=== PATIENT | female | born 1955 | race Caucasian/White ===

== ENCOUNTER 2018-12-21 12:53 | Emergency (ER) | payer OTHER ==
[~2018-12-21] VITALS: Ht 165.1 cm; Wt 68.0 kg
[~2018-12-21 12:53] MED LIST: ADVIL200 M1 PO; CLIMARA 0.070.075 MG TD; LEVOTHYROXIN0.137 M1 PO; XANAX 0.5 MG0.5 MG PO
[2018-12-21] MEDS ORDERED: [UNRECOGNIZED DRUG - OTHER] TP (13:08)
[2018-12-21 14:31] LABS: HEMATOCRIT 40.9 % (37.0-47.0); HEMOGLOBIN 14.3 gm/dL (12.0-15.0); MCH 32.8 pg (26.0-34.0); MCHC 34.9 g/dL (28.0-37.0); PLATELET COUNT 245 thou/uL (150-400); RBC 4.36 mil/uL (4.20-5.00); RDW 12.5 % (10.5-14.5); WBC 5.6 thou/uL (4.0-11.0)
[2018-12-21 14:38] LABS: CALCIUM 9.7 mg/dL (8.5-10.1); CREATININE 0.8 mg/dL (0.6-1.0); POTASSIUM 4.3 mmol/L (3.5-5.1)
[2018-12-21 14:44] LABS: TOTAL BILIRUBIN 0.3 mg/dL (<0.1-1.0); TOTAL PROTEIN 7.6 g/dL (6.4-8.2)
[2018-12-21 14:55] LABS: ABSOLUTE NEUTROPHILS 3.2 thou/uL (1.4-8.2); ATYPICAL LYMPHS 1 %
[2018-12-21] MEDS ORDERED: CLINDAMYCIN HC300 MG PO (15:32)
[2018-12-21 15:55] VITALS: BP 112/57
== END 2018-12-21 15:55 | disposition home or self-care (01) ==
LOC: ER 12:53
PROVIDERS: Emergency Medicine
DX: L03.113 Cellulitis of right upper limb (principal); Z90.710 Acquired absence of both cervix and uterus; Z88.1 Allergy status to other antibiotic agents; Z88.6 Allergy status to analgesic agent; Z88.8 Allergy status to other drugs, medicaments and biological substances